=== PATIENT | female | born 1975 | race Caucasian/White ===

== ENCOUNTER 2016-05-03 07:11 | Day surgery (SDC) | payer MEDICAID ==
[~2016-05-03 07:11] MED LIST: ACETAMINOPHEN 1000MG/100 ML PREMIX IV ONE; FAMOTIDINE 20MG TABLET PO ONE; MECLIZINE 25 MG TABLET PO ONE; METOCLOPRAMIDE 10 MG TABLET PO ONE; VANCOMYCIN HCL 1,000 MG in 0.9 % SODIUM CHLORIDE 250ML 250 ML IVPB ONE
[2016-05-03] MEDS ORDERED: MUPIROCIN OINT 22 GM TUBE TOP ONE (12:08)
[2016-05-03] MEDS ORDERED: OXYCODONE HCL/APAP 5MG/325MG TABLET PO ONE (12:08)
[2016-05-03] MEDS ORDERED: SEVOFLURANE 250 ML INH ONE (13:48)
[2016-05-03] MEDS ORDERED: MIDAZOLAM HCL 2MG/2ML VIAL IV ONE (13:48)
[2016-05-03] MEDS ORDERED: MEPERIDINE 50 MG/1 ML VIAL IVP ONE (13:48)
[2016-05-03] MEDS ORDERED: LIDOCAINE 2% MDV (20MG/ML) 20ML VIAL IV ONE (13:48)
[2016-05-03] MEDS ORDERED: PROPOFOL 10 MG/ML VIAL IV ONE (13:48)
[2016-05-03] MEDS ORDERED: KETOROLAC 30 MG/ML VIAL IVP ONE (13:48)
--- NOTE | 2016-05-03 16:12 | Operative Note ---
DATE OF SURGERY: 05/03/16 PREOPERATIVE DIAGNOSIS: CARPAL TUNNEL SYNDROME OF THE WRIST. POSTOPERATIVE DIAGNOSIS: CARPAL TUNNEL SYNDROME OF THE WRIST. PROCEDURE: DECOMPRESSION RIGHT MEDIAN NERVE OF THE WRIST USING 3.5 LOOP MAGNIFICATION. SURGEON: YAYA ALMONTE D.O. REFERRING PHYSICIAN: RENY WARD M.D. DESCRIPTION: This 40-year-old female was taken to the Operating Room and placed in the supine position on the operating room table where general anesthesia was induced. The right upper extremity was then elevated. It was prepped with Hibiclens and draped in the usual sterile fashion. It was exsanguinated and the tourniquet inflated to 250 mmHg. A palmar incision was utilized following the hypothenar crease from the level of the base of the webspace of the thumb to the flexor crease of the wrist. Dissection was carried down through the skin and subcutaneous tissue. Hemostasis was obtained with the electrocautery. The palmar fascia was divided inline with the skin incision. The palmar fascia was punctured and split to its proximal margin with the contents of the carpal tunnel under direct vision. The transverse carpal ligament was transected along its ulnar border and the radial flap was raised to expose the entire median nerve under the transverse carpal ligament. The recurrent motor branch of the median nerve was identified and found to be normal. Grossly, the median nerve appeared to be normal to the naked eye. With the nerve completely decompressed, the wound was irrigated with lactated Ringer solution. The tourniquet was released and hemostasis was obtained with the electrocautery. The wound was closed with interrupted 6-0 nylon suture and sterile dressings were applied with the wrist in slight dorsal flexion and the thumb in an adducted position and then the patient was taken to the Recovery Room in satisfactory condition. GROSS PATHOLOGY: This patient demonstrated physical and electrodiagnostic evidence of carpal tunnel syndrome in the left wrist. The median nerve grossly appeared to be normal. Yaya Almonte D.O. Date & Time cc: Dr. Reny Ward JOB NUMBER: [id number] [facility]
== END 2016-05-03 10:05 | disposition home or self-care (01) ==
LOC: SUR 07:11
PROVIDERS: ATTEND Orthopaedic Surgery
DX: G56.01 Carpal tunnel syndrome, right upper limb (principal); E03.9 Hypothyroidism, unspecified
CPT/HCPCS: 81025; 64721; 01810; J1885; J7050

== ENCOUNTER 2016-12-16 16:29 | Emergency (ER) | payer MEDICAID ==
--- NOTE | 2016-12-16 16:43 | Emergency Department Record ---
History of Present Illness - General Chief Complaint: Laceration(s) Stated Complaint: LEFT PINKIE LAC Time Seen by Provider: 12/16/16 16:41 Source: Patient Mode of Arrival: Ambulatory Limitations: No limitations - History of Present Illness Initial Commments: 41 yo female present after a left 5th finger laceration. She was working around the toilet. She was reaching around and cut the 5th finger on a sharp surface. No numbness or tingling. No lose of function. She is unsure when the last tetanus was given. Extremity Location: Left: Hand Place: Home Context: Accidental, Sharp object use Associated Symptoms: None Treatments Prior to Arrival: Bandage - Jose Coma Scale Eye Response: (4) Open spontaneously Motor Response: (6) Obeys commands Verbal Response: (5) Oriented Jose Total: 15 - Related Data Hx Tetanus Toxoid Vaccination: No Allergies Allergy/AdvReac Type Severity Reaction Status Date / Time prednisone [PREDNISONE] Allergy Unknown ASTHMA Verified 12/16/16 16:44 Sulfa (Sulfonamide AdvReac Unknown ANEMIA Verified 12/16/16 16:44 Antibiotics) [SULFA(SULFONAMIDE ANTIBIOTICS)] Past Medical History - SOCIAL HISTORY Smoking Status: Current every day smoker - RESPIRATORY Hx Respiratory Disorders: Yes Hx Asthma: Yes Hx Sleep Apnea: Yes Hx of CPAP: Yes (do not use a machine) - CARDIOVASCULAR Hx Cardio Disorders: No - NEURO Hx Neuro Disorders: Yes Hx Headaches: Yes - GI Hx GI Disorders: Yes Hx Reflux: Yes - Hx Genitourinary Disorders: No - ENDOCRINE Hx Endocrine Disorders: Yes Hx Diabetes: No Hx Thyroid Disease: Yes Comment:: thyroidectomy - MUSCULOSKELETAL Hx Musculoskeletal Disorders: Yes Hx Arthritis: Yes - PSYCH Hx Psych Problems: Yes Hx Anxiety: Yes Hx Depression: Yes - HEMATOLOGY/ONCOLOGY Hx Hematology/Oncology Disorders: Yes Hx Cancer: Yes (thyroid) Hx Radiation Therapy: Yes (iodine radiation) Family Medical History Hx Anxiety: Mother Hx Cancer: Grandparents Hx Diabetes: Father Hx HTN: Father Hx Kidney Disease: Father Hx Seizures: Brother/Sister Physical Exam - General General Appearance: Alert, Oriented x3, Cooperative Limitations: No limitations - Head Head exam: Atraumatic, Normocephalic, Normal inspection - Eye Eye exam: Normal appearance. negative: Conjunctival injection, Periorbital swelling - ENT ENT exam: Normal exam Ear exam: Normal external inspection Nasal Exam: Normal inspection Mouth exam: Normal external inspection - Neck Neck exam: Normal inspection - Cardiovascular Cardiovascular Exam: Regular rate, Normal rhythm, Normal heart sounds Peripheral Pulses: 2+: Radial (L) - Rectal Rectal exam: Deferred - exam: Deferred - Extremities Extremities exam: Full ROM, Normal capillary refill, Tenderness. negative: Normal inspection, Joint swelling Image of Finger Tip: 1 - Linear clean laceration, no FB, nail is uninvolved. - Neurological Neurological exam: Alert, Normal gait, Oriented X3 - Psychiatric Psychiatric exam: Normal affect, Normal mood. negative: Agitated, Anxious - Skin Skin exam: Dry, Normal color, Warm. negative: Intact Type of lesion: Laceration Course - Reevaluation(s) Reevaluation #1: Procedure Laceration Repair 2cm finger laceration Betadine Prep Lidocaine without Epi digital block Irrigated copiously with NS No FB Prolene Suture 5-0 #4 Good wound approximation and tolerated well 12/16/16 17:23 Disposition Disposition: Discharge Clinical Impression: Finger laceration Qualifiers: Encounter type: initial encounter Finger: little finger Damage to nail status: without damage Foreign body presence: without foreign body Laterality: left Qualified Code(s): S61.217A - Laceration without foreign body of left little finger without damage to nail, initial encounter Disposition: Home, Self-Care Condition: (1) Good Instructions: Laceration (ED) Additional Instructions: Return in 7 days for suture removal Return sooner if red, warm, pus or any new concerns Keep dry and clean Forms: Patient Portal Access Time of Disposition: 17:25 Quality - Quality Measures Quality Measures: N/A - Blood Pressure Screening Does Patient Have Any of the Following: No Blood Pressure Classification: Pre-Hypertensive BP Reading Systolic Measurement: 139 Diastolic Measurement: 78 Screening for High Blood Pressure: < Pre-Hypertensive BP, F/U Documented > [ G8950] Pre-Hypertensive Follow-up Interventions: Referral to alternative/primary care provider.
== END 2016-12-16 17:37 | disposition home or self-care (01) ==
LOC: ER 16:29
DX: S61.217A Laceration without foreign body of left little finger without damage to nail, initial encounter (principal); W26.8XXA Contact with other sharp object(s), not elsewhere classified, initial encounter; Y92.002 Bathroom of unspecified non-institutional (private) residence as the place of occurrence of the external cause
CPT/HCPCS: 12001; 99283

== ENCOUNTER 2016-12-23 15:44 | Emergency (ER) | payer MEDICAID ==
--- NOTE | 2016-12-23 16:02 | Emergency Department Record ---
History of Present Illness - General Chief Complaint: Suture removal Stated Complaint: STITCHES OUT Time Seen by Provider: 12/23/16 15:57 Source: Patient, RN notes reviewed - History of Present Illness Initial Comments: healing nicely no infection and sutures in 7 days Complaint: Suture/staple removal Onset/Timin -: Days(s) Initial Visit For: Laceration Returns Today for: Staple/stitch removal - Related Data Previous Rx's Medication Instructions Recorded Fluconazole [Diflucan] 150 mg PO ONCE #1 tab 12/23/16 Allergies Allergy/AdvReac Type Severity Reaction Status Date / Time prednisone [PREDNISONE] Allergy Unknown ASTHMA Unverified 12/18/16 13:47 Sulfa (Sulfonamide AdvReac Unknown ANEMIA Unverified 12/18/16 13:47 Antibiotics) [SULFA(SULFONAMIDE ANTIBIOTICS)] Travel Screening - Travel/Exposure Within Last 30 Days Have you traveled within the last 30 days?: No - Travel/Exposure Within Last Year Have you traveled outside the [place] in the last year?: No - Travel Symptoms Symptom Screening: None Review of Systems Reviewed: No additional complaints except as noted below Constitutional: Reports: As per HPI. Denies: Chills, Fever, Malaise, Night sweats, Weakness, Weight change Eyes: Reports: As per HPI. Denies: Eye discharge, Eye pain, Photophobia, Vision change ENT: Reports: As per HPI. Denies: Congestion, Dental pain, Ear pain, Epistaxis , Hearing loss, Throat pain Respiratory: Reports: As per HPI. Denies: Cough, Dyspnea, Hemoptysis, Stridor, Wheezes Cardiovascular: Reports: As per HPI. Denies: Arrhythmia, Chest pain, Dyspnea on exertion, Edema, Murmurs, Orthopnea, Palpitations, Paroxysmal nocturnal dyspnea, Rheumatic Fever, Syncope Endocrine: Reports: As per HPI. Denies: Fatigue, Heat or cold intolerance, Polydipsia, Polyuria Gastrointestinal: Reports: As per HPI. Denies: Abdominal pain, Constipation, Diarrhea, Hematemesis, Hematochezia, Melena, Nausea, Vomiting Genitourinary: Reports: As per HPI. Denies: Abnormal menses, Discharge, Dyspareunia, Dysuria, Frequency, Hematuria, Incontinence, Retention, Urgency Musculoskeletal: Reports: As per HPI. Denies: Arthralgia, Back pain, Gout, Joint swelling, Myalgia, Neck pain Skin: Reports: As per HPI. Denies: Bruising, Change in color, Change in hair/ nails, Lesions, Pruritus, Rash Neurological: Reports: As per HPI. Denies: Abnormal gait, Confusion, Headache, Numbness, Paresthesias, Seizure, Tingling, Tremors, Vertigo, Weakness Psychiatric: Reports: As per HPI. Denies: Anxiety, Auditory hallucinations, Depression, Homicidal thoughts, Suicidal thoughts, Visual hallucinations Hematological/Lymphatic: Reports: As per HPI. Denies: Anemia, Blood Clots, Easy bleeding, Easy bruising, Swollen glands Past Medical History - SOCIAL HISTORY Smoking Status: Current every day smoker Alcohol Use: None Drug Use: None - RESPIRATORY Hx Respiratory Disorders: Yes Hx Asthma: Yes Hx Sleep Apnea: Yes Hx of CPAP: Yes (do not use a machine) - CARDIOVASCULAR Hx Cardio Disorders: No - NEURO Hx Neuro Disorders: Yes Hx Headaches: Yes - GI Hx GI Disorders: Yes Hx Reflux: Yes - Hx Genitourinary Disorders: No - ENDOCRINE Hx Endocrine Disorders: Yes Hx Diabetes: No Hx Thyroid Disease: Yes Comment:: thyroidectomy - MUSCULOSKELETAL Hx Musculoskeletal Disorders: Yes Hx Arthritis: Yes - PSYCH Hx Psych Problems: Yes Hx Anxiety: Yes Hx Depression: Yes - HEMATOLOGY/ONCOLOGY Hx Hematology/Oncology Disorders: Yes Hx Cancer: Yes (thyroid) Hx Radiation Therapy: Yes (iodine radiation) Family Medical History Any Significant Family History?: No Hx Anxiety: Mother Hx Cancer: Grandparents Hx Diabetes: Father Hx HTN: Father Hx Kidney Disease: Father Hx Seizures: Brother/Sister Physical Exam - General General Appearance: Alert, Oriented x3, Cooperative, No acute distress - Head Head exam: Normal inspection - Eye Eye exam: Normal appearance, PERRL Pupils: Normal accommodation - ENT ENT exam: Normal exam, Mucous membranes moist, Normal external ear exam, Normal orophraynx, TM's normal bilaterally Ear exam: Normal external inspection. negative: External canal tenderness Nasal Exam: Normal inspection. negative: Discharge, Sinus tenderness Mouth exam: Normal external inspection, Tongue normal Teeth exam: Normal inspection. negative: Dental caries Throat exam: Normal inspection. negative: Tonsillar erythema, Tonsillar exudate - Neck Neck exam: Normal inspection, Full ROM. negative: Tenderness - Respiratory Respiratory exam: Normal lung sounds bilaterally. negative: Respiratory distress - Cardiovascular Cardiovascular Exam: Regular rate, Normal rhythm, Normal heart sounds - GI/Abdominal GI/Abdominal exam: Soft, Normal bowel sounds. negative: Tenderness - Rectal Rectal exam: Deferred - exam: Deferred - Extremities Extremities exam: Normal inspection, Full ROM, Normal capillary refill. negative: Tenderness - Back Back exam: Reports: Normal inspection, Full ROM. Denies: Muscle spasm, Rash noted, Tenderness - Neurological Neurological exam: Alert, Normal gait, Oriented X3, Reflexes normal - Psychiatric Psychiatric exam: Normal affect, Normal mood - Skin Skin exam: Dry, Intact, Normal color, Warm Course Vital Signs 12/23/16 15:45 Temperature 98.1 F Pulse Rate 50 L Respiratory 16 Rate Blood Pressure 129/92 Pulse Ox 99 Disposition Clinical Impression: Visit for suture removal, Vaginal moniliasis Disposition: Home, Self-Care Condition: (1) Good Instructions: Stitches Removal (ED) Prescriptions: Fluconazole [Diflucan] 150 mg PO ONCE #1 tab Forms: Patient Portal Access Time of Disposition: 16:01 Quality - Quality Measures Quality Measures: N/A - Blood Pressure Screening Does Patient Have Any of the Following: No Blood Pressure Classification: Hypertensive Reading Systolic Measurement: 129 Diastolic Measurement: 92 Screening for High Blood Pressure: < First Hypertensive BP, F/U Documented > [ G8950] First Hypertensive Follow-up Interventions: Referral to alternative/primary care provider.
== END 2016-12-23 16:07 | disposition home or self-care (01) ==
LOC: ER 15:44
DX: Z48.02 Encounter for removal of sutures (principal); B37.3 Candidiasis of vulva and vagina

== ENCOUNTER 2017-02-17 17:33 | Emergency (ER) | payer MEDICAID ==
--- NOTE | 2017-02-17 18:43 | Emergency Department Record ---
History of Present Illness - General Stated complaint: RASH ARMS/FACE Time Seen by Provider: 02/17/17 18:35 Source: Patient Mode of Arrival: Ambulatory Limitations: No limitations - History of Present Illness Initial comments: 41 yo female presents to ED for further evaluation of a rash to the upper extremities bilaterally extending to the mid-forearms. Patient reports that she has been treated x 2 for scabies without improvement in her symptoms. Patient report itching, denies fevers, chills, or recent illness. Patient denies other family members with similar symptoms at home. 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 MD complaint: Rash Onset/Timin -: Month(s) Hx Tetanus Toxoid Vaccination: No Location: [facility] [place] S[place] Severity: Moderate Quality: Other (itching) Improves with: None Worsens with: None Associated symptoms: Denies other symptoms Treatments Prior to Arrival: Other (Permetherin) - Related Data Previous Rx's Medication Instructions Recorded Diphenhydramine HCl [Benadryl] 50 mg PO Q6H PRN #30 cap 02/17/17 Hydrocortisone/Aloe Vera 30 gm TP BID #1 cream..g. 02/17/17 [Hydrocortisone-Aloe 1% Cream] Allergies Allergy/AdvReac Type Severity Reaction Status Date / Time prednisone [PREDNISONE] Allergy Unknown ASTHMA Verified 02/17/17 18:51 Sulfa (Sulfonamide AdvReac Unknown ANEMIA Verified 02/17/17 18:51 Antibiotics) [SULFA(SULFONAMIDE ANTIBIOTICS)] Review of Systems Constitutional: Denies: Chills, Fever, Malaise, Night sweats Eyes: Denies: Eye discharge, Eye pain ENT: Denies: Congestion, Ear pain, Epistaxis Respiratory: Denies: Cough, Dyspnea Cardiovascular: Denies: Chest pain, Dyspnea on exertion Endocrine: Denies: Fatigue, Heat or cold intolerance Gastrointestinal: Denies: Abdominal pain, Nausea, Vomiting Genitourinary: Denies: Incontinence, Retention Musculoskeletal: Denies: Arthralgia, Back pain, Gout, Joint swelling Skin: Reports: Rash. Denies: Bruising, Change in color Neurological: Denies: Abnormal gait, Confusion, Headache Psychiatric: Denies: Anxiety Hematological/Lymphatic: Denies: Anemia, Blood Clots Past Medical History - SOCIAL HISTORY Smoking Status: Current every day smoker Drug Use: None - RESPIRATORY Hx Respiratory Disorders: Yes Hx Asthma: Yes Hx Sleep Apnea: Yes Hx of CPAP: Yes (do not use a machine) - CARDIOVASCULAR Hx Cardio Disorders: No - NEURO Hx Neuro Disorders: Yes Hx Headaches: Yes - GI Hx GI Disorders: Yes Hx Reflux: Yes - Hx Genitourinary Disorders: No - ENDOCRINE Hx Endocrine Disorders: Yes Hx Diabetes: No Hx Thyroid Disease: Yes Comment:: thyroidectomy - MUSCULOSKELETAL Hx Musculoskeletal Disorders: Yes Hx Arthritis: Yes - PSYCH Hx Psych Problems: Yes Hx Anxiety: Yes Hx Depression: Yes - HEMATOLOGY/ONCOLOGY Hx Hematology/Oncology Disorders: Yes Hx Cancer: Yes (thyroid) Hx Radiation Therapy: Yes (iodine radiation) Family Medical History Hx Anxiety: Mother Hx Cancer: Grandparents Hx Diabetes: Father Hx HTN: Father Hx Kidney Disease: Father Hx Seizures: Brother/Sister Physical Exam - General General Appearance: Alert, Oriented x3, Cooperative, No acute distress Limitations: No limitations - Head Head exam: Atraumatic, Normocephalic, Normal inspection Head exam detail: negative: Abrasion, Contusion, Ferrara's sign, General tenderness, Hematoma, Laceration - Eye Eye exam: Normal appearance. negative: Conjunctival injection, Periorbital swelling, Periorbital tenderness, Scleral icterus - ENT Ear exam: negative: Auricular hematoma, Auricular trauma Nasal Exam: negative: Active bleeding, Discharge, Dried blood, Foreign body, Sinus tenderness Mouth exam: negative: Drooling, Laceration, Muffled voice, Tongue elevation - Neck Neck exam: Normal inspection. negative: Meningismus, Tenderness - Respiratory Respiratory exam: Normal lung sounds bilaterally. negative: Respiratory distress, Rhonchi, Stridor, Wheezes - Cardiovascular Cardiovascular Exam: Regular rate, Normal rhythm, Normal heart sounds - GI/Abdominal GI/Abdominal exam: Soft. negative: Rebound, Rigid, Tenderness - Rectal Rectal exam: Deferred - exam: Deferred - Extremities Extremities exam: Full ROM, Other (Numerous, small, (2-3 mm) scabbed lesions to the lateral and extensor surfaces of the upper extremities extending from the hands to the mid-forearm bilaterally). negative: Calf tenderness, Pedal edema, Tenderness - Back Back exam: Denies: CVA tenderness (R), CVA tenderness (L) - Neurological Neurological exam: Alert, Normal gait, Oriented X3 - Psychiatric Psychiatric exam: Normal affect, Normal mood - Skin Skin exam: Rash. negative: Abrasion Type of lesion: Rash Distribution of rash: STEVE[place]OHAN Course - Reevaluation(s) Reevaluation #1: 02/17/17 18:41 Examination does not appear c/w bacterial infection or fungal etiology. ? bites vs. contact dermatitis. Patient reports permetherin has not improved her symptoms and that she has allergic reactions to prednisone. 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 Patient agrees with the plan as discussed. Disposition Disposition: Discharge Clinical Impression: Contact dermatitis Qualifiers: Contact dermatitis type: unspecified Contact dermatitis trigger: unspecified trigger Qualified Code(s): L25.9 - Unspecified contact dermatitis, unspecified cause Disposition: Home, Self-Care Condition: (2) Stable Instructions: Contact Dermatitis (ED) Additional Instructions: Return to ED if your symptoms worsen or if you have any concerns. Hydrocortisone and Benadryl as directed.' Follow-up with your family doctor in 3-5 days for further evaluation and possible dermatology referral. Prescriptions: Diphenhydramine HCl [Benadryl] 50 mg PO Q6H PRN #30 cap PRN Reason: Itch/Hives Hydrocortisone/Aloe Vera [Hydrocortisone-Aloe 1% Cream] 30 gm TP BID #1 cream..g. Forms: Patient Portal Access Time of Disposition: 18:46 Quality - Quality Measures Quality Measures: N/A - Blood Pressure Screening Does Patient Have Any of the Following: No Blood Pressure Classification: Pre-Hypertensive BP Reading Systolic Measurement: 131 Diastolic Measurement: 71 Screening for High Blood Pressure: < Pre-Hypertensive BP, F/U Documented > [ G8950] Pre-Hypertensive Follow-up Interventions: Referral to alternative/primary care provider.
== END 2017-02-17 19:04 | disposition home or self-care (01) ==
LOC: ER 17:33
DX: L25.9 Unspecified contact dermatitis, unspecified cause (principal)
CPT/HCPCS: 99282

== ENCOUNTER 2017-02-20 22:37 | Emergency (ER) | payer MEDICAID ==
[2017-02-20] MEDS ORDERED: DIPHENHYDRAMINE HCL IV 50 MG/ML VIAL IM ONE (23:50)
--- NOTE | 2017-02-20 23:57 | Emergency Department Record ---
History of Present Illness - General Chief complaint: Rash Stated complaint: RECHECK Time Seen by Provider: 02/20/17 23:40 Source: Patient Mode of Arrival: Ambulatory Limitations: No limitations - History of Present Illness Initial comments: pt has a rash for weeks that she was treated in [facility] care twice for with permethrin cream and did not improve. she was seen in ed 2 days ago and was started on cortisone cream with no improvement. pt is allergic to prednisone. she has been taking benadryl . she had been told to follow up with a plow holder which she is trying to do. MD complaint: Rash Onset/Timin -: Month(s) Hx Tetanus Toxoid Vaccination: No Location: Generalized, Face, LUE, RUE Treatments Prior to Arrival: OTC topical medication - Related Data Previous Rx's Medication Instructions Recorded Diphenhydramine HCl [Benadryl] 50 mg PO Q6H PRN #30 cap 02/17/17 Hydrocortisone/Aloe Vera 30 gm TP BID #1 cream..g. 02/17/17 [Hydrocortisone-Aloe 1% Cream] Allergies Allergy/AdvReac Type Severity Reaction Status Date / Time prednisone [PREDNISONE] Allergy Unknown ASTHMA Verified 02/17/17 18:51 Sulfa (Sulfonamide AdvReac Unknown ANEMIA Verified 02/17/17 18:51 Antibiotics) [SULFA(SULFONAMIDE ANTIBIOTICS)] Travel Screening - Travel/Exposure Within Last 30 Days Have you traveled within the last 30 days?: No - Travel Symptoms Symptom Screening: None Review of Systems Reviewed: No additional complaints except as noted below Constitutional: Reports: As per HPI. Denies: Chills, Fever, Malaise, Night sweats, Weakness, Weight change Eyes: Reports: As per HPI. Denies: Eye discharge, Eye pain, Photophobia, Vision change ENT: Reports: As per HPI. Denies: Congestion, Dental pain, Ear pain, Epistaxis , Hearing loss, Throat pain Respiratory: Reports: As per HPI. Denies: Cough, Dyspnea, Hemoptysis, Stridor, Wheezes Cardiovascular: Reports: As per HPI. Denies: Arrhythmia, Chest pain, Dyspnea on exertion, Edema, Murmurs, Orthopnea, Palpitations, Paroxysmal nocturnal dyspnea, Rheumatic Fever, Syncope Endocrine: Reports: As per HPI. Denies: Fatigue, Heat or cold intolerance, Polydipsia, Polyuria Gastrointestinal: Reports: As per HPI. Denies: Abdominal pain, Constipation, Diarrhea, Hematemesis, Hematochezia, Melena, Nausea, Vomiting Genitourinary: Reports: As per HPI. Denies: Abnormal menses, Discharge, Dyspareunia, Dysuria, Frequency, Hematuria, Incontinence, Retention, Urgency Musculoskeletal: Reports: As per HPI. Denies: Arthralgia, Back pain, Gout, Joint swelling, Myalgia, Neck pain Skin: Reports: As per HPI. Denies: Bruising, Change in color, Change in hair/ nails, Lesions, Pruritus, Rash Neurological: Reports: As per HPI. Denies: Abnormal gait, Confusion, Headache, Numbness, Paresthesias, Seizure, Tingling, Tremors, Vertigo, Weakness Psychiatric: Reports: As per HPI. Denies: Anxiety, Auditory hallucinations, Depression, Homicidal thoughts, Suicidal thoughts, Visual hallucinations Hematological/Lymphatic: Reports: As per HPI. Denies: Anemia, Blood Clots, Easy bleeding, Easy bruising, Swollen glands Past Medical History - SOCIAL HISTORY Smoking Status: Current every day smoker - RESPIRATORY Hx Respiratory Disorders: Yes Hx Asthma: Yes Hx Sleep Apnea: Yes Hx of CPAP: Yes (do not use a machine) - CARDIOVASCULAR Hx Cardio Disorders: No - NEURO Hx Neuro Disorders: Yes Hx Headaches: Yes - GI Hx GI Disorders: Yes Hx Reflux: Yes - Hx Genitourinary Disorders: No - ENDOCRINE Hx Endocrine Disorders: Yes Hx Diabetes: No Hx Thyroid Disease: Yes Comment:: thyroidectomy - MUSCULOSKELETAL Hx Musculoskeletal Disorders: Yes Hx Arthritis: Yes - PSYCH Hx Psych Problems: Yes Hx Anxiety: Yes Hx Depression: Yes - HEMATOLOGY/ONCOLOGY Hx Hematology/Oncology Disorders: Yes Hx Cancer: Yes (thyroid) Hx Radiation Therapy: Yes (iodine radiation) Family Medical History Any Significant Family History?: Yes Hx Anxiety: Mother Hx Cancer: Grandparents Hx Diabetes: Father Hx HTN: Father Hx Kidney Disease: Father Hx Seizures: Brother/Sister Physical Exam - General General Appearance: Alert, Oriented x3, Cooperative, Mild distress - Head Head exam: Normal inspection - Eye Eye exam: Normal appearance, PERRL, EOMI Pupils: Normal accommodation - ENT ENT exam: Normal exam, Mucous membranes moist, Normal external ear exam, Normal orophraynx Ear exam: Normal external inspection. negative: External canal tenderness Nasal Exam: Normal inspection. negative: Discharge, Sinus tenderness Mouth exam: Normal external inspection, Tongue normal Teeth exam: Normal inspection. negative: Dental caries Throat exam: Normal inspection. negative: Tonsillar erythema, Tonsillar exudate - Neck Neck exam: Normal inspection, Full ROM. negative: Tenderness - Respiratory Respiratory exam: Normal lung sounds bilaterally. negative: Respiratory distress - Cardiovascular Cardiovascular Exam: Regular rate, Normal rhythm, Normal heart sounds - GI/Abdominal GI/Abdominal exam: Soft, Normal bowel sounds. negative: Tenderness - Rectal Rectal exam: Deferred - exam: Deferred - Extremities Extremities exam: Normal inspection, Full ROM, Normal capillary refill. negative: Tenderness - Back Back exam: Reports: Normal inspection, Full ROM. Denies: Muscle spasm, Rash noted, Tenderness - Neurological Neurological exam: Alert, CN II-XII intact, Normal gait, Oriented X3, Reflexes normal - Psychiatric Psychiatric exam: Normal affect, Normal mood - Skin Skin exam: Dry, Intact, Normal color, Rash, Warm Distribution of rash: Face, RUE, LUE Description of rash: Erythematous, Macular, Papular Course Vital Signs 02/20/17 23:01 Temperature 98.9 F Pulse Rate [ 60 Pulse Ox Probe] Respiratory 18 Rate Blood Pressure 126/68 [Left Arm] Pulse Ox 96 Disposition Disposition: Discharge Clinical Impression: Contact dermatitis Qualifiers: Contact dermatitis type: unspecified Contact dermatitis trigger: unspecified trigger Qualified Code(s): L25.9 - Unspecified contact dermatitis, unspecified cause Disposition: Home, Self-Care Condition: (1) Good Instructions: Contact Dermatitis (ED) Additional Instructions: follow up with plow holder buzz. return sooner if worse. benadryl every 6 hours as needed. Referrals: SADI HARE [CONSULTING PHYSICIAN] - Quality - Quality Measures Quality Measures: N/A - Blood Pressure Screening Does Patient Have Any of the Following: No Blood Pressure Classification: Pre-Hypertensive BP Reading Systolic Measurement: 126 Diastolic Measurement: 68 Screening for High Blood Pressure: < Pre-Hypertensive BP, F/U Documented > [ G8950] Pre-Hypertensive Follow-up Interventions: Follow-up with rescreen every year.
--- NOTE | 2017-02-21 00:09 | Emergency Department Record ---
History of Present Illness - General Chief complaint: Rash Stated complaint: RECHECK Time Seen by Provider: 02/20/17 23:40 Source: Patient Mode of Arrival: Ambulatory Limitations: No limitations - History of Present Illness MD complaint: Rash Onset/Timin -: Month(s) Hx Tetanus Toxoid Vaccination: No Location: Generalized, Face, LUE, RUE Treatments Prior to Arrival: OTC topical medication - Related Data Previous Rx's Medication Instructions Recorded Diphenhydramine HCl [Benadryl] 50 mg PO Q6H PRN #30 cap 02/17/17 Hydrocortisone/Aloe Vera 30 gm TP BID #1 cream..g. 02/17/17 [Hydrocortisone-Aloe 1% Cream] Allergies Allergy/AdvReac Type Severity Reaction Status Date / Time prednisone [PREDNISONE] Allergy Unknown ASTHMA Verified 02/17/17 18:51 Sulfa (Sulfonamide AdvReac Unknown ANEMIA Verified 02/17/17 18:51 Antibiotics) [SULFA(SULFONAMIDE ANTIBIOTICS)] Travel Screening - Travel/Exposure Within Last 30 Days Have you traveled within the last 30 days?: No - Travel Symptoms Symptom Screening: None Review of Systems Constitutional: Reports: As per HPI. Denies: Chills, Fever, Malaise, Night sweats, Weakness, Weight change Eyes: Reports: As per HPI. Denies: Eye discharge, Eye pain, Photophobia, Vision change ENT: Reports: As per HPI. Denies: Congestion, Dental pain, Ear pain, Epistaxis , Hearing loss, Throat pain Respiratory: Reports: As per HPI. Denies: Cough, Dyspnea, Hemoptysis, Stridor, Wheezes Cardiovascular: Reports: As per HPI. Denies: Arrhythmia, Chest pain, Dyspnea on exertion, Edema, Murmurs, Orthopnea, Palpitations, Paroxysmal nocturnal dyspnea, Rheumatic Fever, Syncope Endocrine: Reports: As per HPI. Denies: Fatigue, Heat or cold intolerance, Polydipsia, Polyuria Gastrointestinal: Reports: As per HPI. Denies: Abdominal pain, Constipation, Diarrhea, Hematemesis, Hematochezia, Melena, Nausea, Vomiting Genitourinary: Reports: As per HPI. Denies: Abnormal menses, Discharge, Dyspareunia, Dysuria, Frequency, Hematuria, Incontinence, Retention, Urgency Musculoskeletal: Reports: As per HPI. Denies: Arthralgia, Back pain, Gout, Joint swelling, Myalgia, Neck pain Skin: Reports: As per HPI. Denies: Bruising, Change in color, Change in hair/ nails, Lesions, Pruritus, Rash Neurological: Reports: As per HPI. Denies: Abnormal gait, Confusion, Headache, Numbness, Paresthesias, Seizure, Tingling, Tremors, Vertigo, Weakness Psychiatric: Reports: As per HPI. Denies: Anxiety, Auditory hallucinations, Depression, Homicidal thoughts, Suicidal thoughts, Visual hallucinations Hematological/Lymphatic: Reports: As per HPI. Denies: Anemia, Blood Clots, Easy bleeding, Easy bruising, Swollen glands Past Medical History - SOCIAL HISTORY Smoking Status: Current every day smoker - RESPIRATORY Hx Respiratory Disorders: Yes Hx Asthma: Yes Hx Sleep Apnea: Yes Hx of CPAP: Yes (do not use a machine) - CARDIOVASCULAR Hx Cardio Disorders: No - NEURO Hx Neuro Disorders: Yes Hx Headaches: Yes - GI Hx GI Disorders: Yes Hx Reflux: Yes - Hx Genitourinary Disorders: No - ENDOCRINE Hx Endocrine Disorders: Yes Hx Diabetes: No Hx Thyroid Disease: Yes Comment:: thyroidectomy - MUSCULOSKELETAL Hx Musculoskeletal Disorders: Yes Hx Arthritis: Yes - PSYCH Hx Psych Problems: Yes Hx Anxiety: Yes Hx Depression: Yes - HEMATOLOGY/ONCOLOGY Hx Hematology/Oncology Disorders: Yes Hx Cancer: Yes (thyroid) Hx Radiation Therapy: Yes (iodine radiation) Family Medical History Any Significant Family History?: Yes Hx Anxiety: Mother Hx Cancer: Grandparents Hx Diabetes: Father Hx HTN: Father Hx Kidney Disease: Father Hx Seizures: Brother/Sister Physical Exam - General Limitations: No limitations Course Vital Signs 02/20/17 02/20/17 23:01 23:56 Temperature 98.9 F 98.9 F Pulse Rate [ 60 60 Pulse Ox Probe] Respiratory 18 18 Rate Blood Pressure 126/68 122/89 [Left Arm] Pulse Ox 96 96 Disposition Disposition: Discharge Clinical Impression: Contact dermatitis Qualifiers: Contact dermatitis type: unspecified Contact dermatitis trigger: unspecified trigger Qualified Code(s): L25.9 - Unspecified contact dermatitis, unspecified cause Disposition: Home, Self-Care Condition: (1) Good Instructions: Contact Dermatitis (ED) Additional Instructions: follow up with dry end operator buzz. return sooner if worse. benadryl every 6 hours as needed. Referrals: SADI HARE [CONSULTING PHYSICIAN] - Forms: Patient Portal Access Quality - Quality Measures Quality Measures: N/A - Blood Pressure Screening Does Patient Have Any of the Following: No Blood Pressure Classification: Pre-Hypertensive BP Reading Systolic Measurement: 122 Diastolic Measurement: 89 Screening for High Blood Pressure: < Pre-Hypertensive BP, F/U Documented > [ G8950] Pre-Hypertensive Follow-up Interventions: Follow-up with rescreen every year.
== END 2017-02-21 00:16 | disposition home or self-care (01) ==
LOC: ER 22:37
DX: L25.9 Unspecified contact dermatitis, unspecified cause (principal)
CPT/HCPCS: 96372; 99282; J1200

== ENCOUNTER 2017-06-04 21:27 | Emergency (ER) | payer MEDICAID ==
[2017-06-04] MEDS ORDERED: IPRATROPIUM/ALBUTEROL (0.5MG/3MG) NEB INH ONE (21:44)
--- NOTE | 2017-06-04 21:50 | Emergency Department Record ---
History of Present Illness - General Chief Complaint: Shortness of breath Stated Complaint: SHORT OF BREATH,BOILS ON BOTH SIDES Time Seen by Provider: 06/04/17 21:32 Source: Patient Mode of Arrival: Ambulatory Limitations: No limitations - History of Present Illness Initial Comments: 41 yo female presents to ED for evaluation of shortness of breath symptoms that began earlier today. Patient denies fevers, chills, or cough symptoms. Patient reports a history of asthma but could not find her albuterol inhaler tonight. Patient also reports several small abscesses near the right lateral breast that the patient was going to have "biopsied" today through her PCP for symptoms of nipple discharge as well. MD Complaint: Shortness of breath Onset/Timin -: Days(s) Severity: Moderate Consistency: Constant Improves With: Nothing Worsens With: Nothing Known History Of: Asthma - Related Data Previous Rx's Medication Instructions Recorded Diphenhydramine HCl [Benadryl] 50 mg PO Q6H PRN #30 cap 02/17/17 Hydrocortisone/Aloe Vera 30 gm TP BID #1 cream..g. 02/17/17 [Hydrocortisone-Aloe 1% Cream] Albuterol Sulfate [Ventolin Hfa] 1 - 2 puff IH .EVERY 4-6 HRS PRN 06/04/17 #1 inhaler Allergies Allergy/AdvReac Type Severity Reaction Status Date / Time prednisone [PREDNISONE] Allergy Unknown ASTHMA Unverified 05/29/17 11:37 lamotrigine [From Lamictal] AdvReac Severe aggression, Unverified 05/29/17 11:37 anger Sulfa (Sulfonamide AdvReac Unknown ANEMIA Unverified 05/29/17 11:37 Antibiotics) [SULFA(SULFONAMIDE ANTIBIOTICS)] Travel Screening - Travel/Exposure Within Last 30 Days Have you traveled within the last 30 days?: No Review of Systems Constitutional: Denies: Chills, Fever, Malaise, Night sweats Eyes: Denies: Eye discharge, Eye pain ENT: Denies: Congestion, Ear pain, Epistaxis Respiratory: Reports: Dyspnea, Wheezes. Denies: Cough, Hemoptysis Cardiovascular: Reports: Dyspnea on exertion. Denies: Chest pain Endocrine: Denies: Fatigue, Heat or cold intolerance Gastrointestinal: Denies: Abdominal pain, Nausea, Vomiting Genitourinary: Denies: Incontinence, Retention Musculoskeletal: Denies: Arthralgia, Back pain, Gout, Joint swelling Skin: Denies: Bruising, Change in color, Change in hair/nails Neurological: Denies: Abnormal gait, Confusion, Headache, Seizure Psychiatric: Denies: Anxiety Hematological/Lymphatic: Denies: Anemia, Blood Clots Past Medical History - SOCIAL HISTORY Smoking Status: Current every day smoker Alcohol Use: None Drug Use: None - RESPIRATORY Hx Respiratory Disorders: Yes Hx Asthma: Yes Hx Sleep Apnea: Yes Hx of CPAP: Yes (do not use a machine) - CARDIOVASCULAR Hx Cardio Disorders: No - NEURO Hx Neuro Disorders: Yes Hx Headaches: Yes - GI Hx GI Disorders: Yes Hx Reflux: Yes - Hx Genitourinary Disorders: No - ENDOCRINE Hx Endocrine Disorders: Yes Hx Diabetes: No Hx Thyroid Disease: Yes Comment:: thyroidectomy - MUSCULOSKELETAL Hx Musculoskeletal Disorders: Yes Hx Arthritis: Yes - PSYCH Hx Psych Problems: Yes Hx Anxiety: Yes Hx Depression: Yes - HEMATOLOGY/ONCOLOGY Hx Hematology/Oncology Disorders: Yes Hx Cancer: Yes (thyroid) Hx Radiation Therapy: Yes (iodine radiation) Family Medical History Any Significant Family History?: Yes Hx Anxiety: Mother Hx Cancer: Grandparents Hx Diabetes: Father Hx HTN: Father Hx Kidney Disease: Father Hx Seizures: Brother/Sister Physical Exam - General General Appearance: Alert, Oriented x3, Cooperative, Moderate distress Limitations: No limitations - Head Head exam: Atraumatic, Normocephalic, Normal inspection Head exam detail: negative: Abrasion, Contusion, Ferrara's sign, General tenderness, Hematoma, Laceration - Eye Eye exam: Normal appearance. negative: Conjunctival injection, Periorbital swelling, Periorbital tenderness, Scleral icterus - ENT Ear exam: negative: Auricular hematoma, Auricular trauma Nasal Exam: negative: Active bleeding, Discharge, Dried blood, Foreign body Mouth exam: negative: Drooling, Laceration, Muffled voice, Tongue elevation - Neck Neck exam: Normal inspection. negative: Meningismus, Tenderness - Respiratory Respiratory exam: Respiratory distress. negative: Rales, Rhonchi, Stridor, Wheezes - Cardiovascular Cardiovascular Exam: Regular rate, Normal rhythm, Normal heart sounds - GI/Abdominal GI/Abdominal exam: Soft. negative: Rebound, Rigid, Tenderness - Rectal Rectal exam: Deferred - exam: Deferred - Extremities Extremities exam: Normal inspection. negative: Calf tenderness, Pedal edema, Tenderness - Back Back exam: Denies: CVA tenderness (R), CVA tenderness (L) - Neurological Neurological exam: Alert, Normal gait, Oriented X3 - Psychiatric Psychiatric exam: Normal affect, Normal mood - Skin Skin exam: Normal color. negative: Abrasion Type of lesion: negative: abrasion Course Vital Signs 06/04/17 21:42 Temperature 98.2 F Pulse Rate [ 60 Pulse Ox Probe] Respiratory 22 Rate Blood Pressure 137/66 [Left Arm] Pulse Ox 99 - Reevaluation(s) Reevaluation #1: 06/04/17 22:33 CXR: No acute process Patient reassessed and reports significant improvement following duoneb treatment. Patient reports that she is allergic to all steroids, therefore will hold prednisone. Patient appears stable for discharge at this time. Disposition Disposition: Discharge Clinical Impression: Bronchospasm Disposition: Home, Self-Care Condition: (2) Stable Instructions: Bronchospasm (ED) Additional Instructions: Return to ED if your symptoms worsen or if you have any concerns. Ventolin as directed. Follow-up with you family doctor in 3-5 days as directed. Prescriptions: Albuterol Sulfate [Ventolin Hfa] 1 - 2 puff IH .EVERY 4-6 HRS PRN #1 inhaler PRN Reason: Difficulty In Breathing Forms: Patient Portal Access Time of Disposition: 22:36 Quality - Quality Measures Quality Measures: N/A - Blood Pressure Screening Does Patient Have Any of the Following: No Blood Pressure Classification: Pre-Hypertensive BP Reading Systolic Measurement: 137 Diastolic Measurement: 66 Screening for High Blood Pressure: < Pre-Hypertensive BP, F/U Documented > [ G8950] Pre-Hypertensive Follow-up Interventions: Referral to alternative/primary care provider.
[2017-06-04] MEDS: PREDNISONE 20 MG TAB PO ONE ×2 (21:59→22:04)
--- NOTE | 2017-06-06 07:24 | RADIOLOGY REPORT ---
EXAM: CHEST, TWO VIEWS HISTORY: DIFFICULTY BREATHING. TECHNIQUE: Frontal and lateral views of the chest were performed. FINDINGS: The heart size is normal. No pulmonary vascular congestion. No infiltrate or pleural effusion. The osseous structures are normal. IMPRESSION: NO ACUTE DISEASE PROCESS. JOB NUMBER: [id number] MTDD
== END 2017-06-04 22:42 | disposition home or self-care (01) ==
LOC: ER 21:27
DX: J98.01 Acute bronchospasm (principal); R06.02 Shortness of breath; F17.210 Nicotine dependence, cigarettes, uncomplicated
CPT/HCPCS: 71046; 94640; 99283; 99284; J7512